=== PATIENT | male | born 1970 | race Caucasian/White ===

== ENCOUNTER 2018-04-15 06:30 | Emergency (ER) | payer SELFPAY ==
[2018-04-15] MEDS ORDERED: ALUM-MAG HYDROX-SIMETH 200-200-20MG/5ML PO ONE (06:58)
[2018-04-15] MEDS ORDERED: PROTONIX PO ONE (06:58)
[2018-04-15] MEDS ORDERED: LIDOCAINE VISCOUS 2% PO ONE (06:58)
--- NOTE | 2018-04-15 07:03 | Emergency Department Report ---
ED General Adult HPI - General Chief complaint: Nausea/Vomiting/Diarrhea Stated complaint: THROAT PAIN/LOW BP Time Seen by Provider: 04/15/18 06:50 Source: EMS Mode of arrival: Stretcher Limitations: Language Barrier - History of Present Illness Initial comments: 47 year old man [place]-speaking who called the ambulance secondary to an apparent episode of acid reflux. I will obtain this history in [place]. Patient states that he clearly felt like acid was coming up in the back of his mouth. He had a coughing episode. He apparently was anxious but did not experience chest pain. He states that he was drinking [employer] all day yesterday and night. He stated the reason why he called an ambulance is because this is the first episode he has had like this in his life. He states that he ordinarily can drink beer without any reflux symptoms. -: Gradual Location: mouth (throat discomfort associated with acid reflux) Radiation: non-radiation Quality: burning Consistency: intermittent Improves with: none Worsens with: none Associated Symptoms: denies other symptoms, cough Treatments Prior to Arrival: none - Related Data Previous Rx's Medication Instructions Recorded Last Taken Type Lansoprazole [Prevacid] 15 mg PO BID #30 cap 04/15/18 Unknown Rx ED Review of Systems ROS: Stated complaint: THROAT PAIN/LOW BP Other details as noted in HPI Constitutional: denies: chills, fever Eyes: denies: eye pain, eye discharge, vision change ENT: throat pain. denies: ear pain Respiratory: cough. denies: shortness of breath, wheezing Cardiovascular: denies: chest pain, palpitations Endocrine: no symptoms reported Gastrointestinal: other (reflux). denies: abdominal pain, nausea, diarrhea Genitourinary: denies: urgency, dysuria Musculoskeletal: denies: back pain, joint swelling, arthralgia Skin: denies: rash, lesions Neurological: denies: headache, weakness, paresthesias Psychiatric: denies: anxiety, depression Hematological/Lymphatic: denies: easy bleeding, easy bruising ED Past Medical Hx - Past Medical History Previous Medical History?: No - Surgical History Past Surgical History?: No - Social History Smoking Status: Unknown if ever smoked Substance Use Type: Alcohol - Medications Home Medications: Home Medications Medication Instructions Recorded Confirmed Last Taken Type Lansoprazole [Prevacid] 15 mg PO BID #30 cap 04/15/18 Unknown Rx ED Physical Exam - General Limitations: No Limitations General appearance: alert, in no apparent distress - Head Head exam: Present: atraumatic, normocephalic - Eye Eye exam: Present: normal appearance - ENT ENT exam: Present: mucous membranes moist - Neck Neck exam: Present: normal inspection - Respiratory Respiratory exam: Present: normal lung sounds bilaterally. Absent: respiratory distress - Cardiovascular Cardiovascular Exam: Present: regular rate, normal rhythm. Absent: systolic mur mur, diastolic murmur, rubs, gallop - GI/Abdominal GI/Abdominal exam: Present: soft, normal bowel sounds. Absent: distended, tenderness, guarding, rebound, rigid - Rectal Rectal exam: Present: deferred - Extremities Exam Extremities exam: Present: normal inspection - Back Exam Back exam: Present: normal inspection - Neurological Exam Neurological exam: Present: alert, oriented X3, CN II-XII intact. Absent: motor sensory deficit - Psychiatric Psychiatric exam: Present: normal affect, normal mood - Skin Skin exam: Present: warm, dry, intact, normal color. Absent: rash ED Course Vital Signs 04/15/18 04/15/18 04/15/18 06:37 09:31 09:32 Temperature 98.0 F Pulse Rate 74 82 Respiratory 14 18 22 Rate Blood Pressure 102/66 O2 Sat by Pulse 98 91 92 Oximetry 04/15/18 04/15/18 04/15/18 09:34 09:36 09:38 Temperature Pulse Rate 82 81 81 Respiratory 21 13 21 Rate Blood Pressure 88/38 88/38 88/38 O2 Sat by Pulse 92 92 91 Oximetry 04/15/18 04/15/18 04/15/18 09:40 09:42 09:44 Temperature Pulse Rate 79 83 84 Respiratory 20 15 16 Rate Blood Pressure 88/38 88/38 88/38 O2 Sat by Pulse 89 87 85 Oximetry 04/15/18 04/15/18 04/15/18 09:45 09:46 09:48 Temperature Pulse Rate 83 81 85 Respiratory 18 20 19 Rate Blood Pressure 88/45 88/45 88/45 O2 Sat by Pulse 84 90 88 Oximetry 04/15/18 04/15/18 04/15/18 09:50 10:00 10:02 Temperature Pulse Rate 79 74 77 Respiratory 19 18 18 Rate Blood Pressure 88/45 103/58 103/58 O2 Sat by Pulse 92 97 96 Oximetry 01/04/15/18 04/15/18 10:04 10:06 10:08 Temperature Pulse Rate 71 81 97 H Respiratory 22 11 L 17 Rate Blood Pressure 103/58 103/58 103/58 O2 Sat by Pulse 97 97 99 Oximetry 04/15/18 04/15/18 04/15/18 10:10 10:12 10:14 Temperature Pulse Rate 81 75 80 Respiratory 20 16 16 Rate Blood Pressure 103/58 103/58 103/58 O2 Sat by Pulse 97 98 97 Oximetry 04/15/18 04/15/18 04/15/18 10:16 10:18 10:20 Temperature Pulse Rate 84 81 82 Respiratory 13 17 14 Rate Blood Pressure 112/65 112/65 112/65 O2 Sat by Pulse 97 96 96 Oximetry 04/15/18 04/15/18 04/15/18 10:22 10:24 10:26 Temperature Pulse Rate 79 79 83 Respiratory 17 15 19 Rate Blood Pressure 112/65 112/65 112/65 O2 Sat by Pulse 96 97 96 Oximetry 04/15/18 04/15/18 04/15/18 10:28 10:30 10:32 Temperature Pulse Rate 82 81 81 Respiratory 13 14 16 Rate Blood Pressure 112/65 95/62 95/62 O2 Sat by Pulse 97 96 97 Oximetry 04/15/18 04/15/18 04/15/18 10:34 10:36 10:38 Temperature Pulse Rate 80 78 79 Respiratory 15 12 18 Rate Blood Pressure 95/62 95/62 99/60 O2 Sat by Pulse 96 97 97 Oximetry 04/15/18 04/15/18 04/15/18 10:40 10:42 10:44 Temperature Pulse Rate 75 79 75 Respiratory 16 12 15 Rate Blood Pressure 99/60 99/60 99/60 O2 Sat by Pulse 98 98 96 Oximetry 04/15/18 04/15/18 04/15/18 10:45 10:46 10:48 Temperature Pulse Rate 74 75 75 Respiratory 13 14 13 Rate Blood Pressure 109/62 109/62 109/62 O2 Sat by Pulse 98 97 98 Oximetry 04/15/18 04/15/18 04/15/18 10:50 10:52 10:54 Temperature Pulse Rate 76 70 75 Respiratory 13 16 15 Rate Blood Pressure 109/62 109/62 109/62 O2 Sat by Pulse 97 98 98 Oximetry 04/15/18 04/15/18 04/15/18 10:56 10:58 11:00 Temperature Pulse Rate 78 77 71 Respiratory 11 L 16 15 Rate Blood Pressure 109/62 109/62 102/63 O2 Sat by Pulse 96 97 97 Oximetry 04/15/18 04/15/18 04/15/18 11:02 11:04 11:06 Temperature Pulse Rate 78 77 79 Respiratory 11 L 17 14 Rate Blood Pressure 102/63 102/63 102/63 O2 Sat by Pulse 98 97 97 Oximetry 04/15/18 04/15/18 04/15/18 11:08 11:10 11:12 Temperature Pulse Rate 80 74 74 Respiratory 14 14 13 Rate Blood Pressure 102/63 102/63 102/63 O2 Sat by Pulse 98 98 98 Oximetry 04/15/18 04/15/18 04/15/18 11:14 11:16 11:18 Temperature Pulse Rate 74 75 76 Respiratory 12 20 19 Rate Blood Pressure 102/63 106/63 106/63 O2 Sat by Pulse 98 98 97 Oximetry 04/15/18 04/15/18 04/15/18 11:20 11:22 11:24 Temperature Pulse Rate 76 77 74 Respiratory 10 L 15 16 Rate Blood Pressure 106/63 106/63 106/63 O2 Sat by Pulse 97 97 96 Oximetry 04/15/18 04/15/18 04/15/18 11:26 11:28 11:30 Temperature Pulse Rate 74 75 72 Respiratory 18 16 19 Rate Blood Pressure 106/63 106/63 99/60 O2 Sat by Pulse 95 96 96 Oximetry 04/15/18 04/15/18 04/15/18 11:32 11:34 11:36 Temperature Pulse Rate 73 74 74 Respiratory 20 15 12 Rate Blood Pressure 99/60 99/60 99/60 O2 Sat by Pulse 97 97 98 Oximetry - Reevaluation(s) Reevaluation #1: Patient had a similar episode while is at the bed side. He appeared to experience acid reflux and some cough. It did not last long. He was in no distress. He stated this was basically what happened prior to him calling the ambulance. 04/15/18 07:02 Reevaluation #2: Patient now asymptomatic. 04/15/18 13:27 ED Medical Decision Making - Lab Data Result diagrams: 04/15/18 07:09 04/15/18 07:09 Laboratory Results - last 24 hr 04/15/18 04/15/18 04/15/18 07:09 07:09 10:26 WBC 5.5 RBC 4.89 Hgb 14.0 Hct 42.4 MCV 87 MCH 29 MCHC 33 RDW 14.1 Plt Count 232 Lymph % (Auto) 38.1 H Hubbard % (Auto) 6.0 Eos % (Auto) 4.7 H Baso % (Auto) 1.1 Lymph # 2.1 Hubbard # 0.3 Eos # 0.3 Baso # 0.1 Seg Neutrophils % 50.1 Seg Neutrophils # 2.8 PT 13.6 INR 1.00 APTT 31.1 D-Dimer Sodium 143 Potassium 3.9 Chloride 107.3 H Carbon Dioxide 19 L Anion Gap 21 BUN 11 Creatinine 0.7 L Estimated GFR > 60 BUN/Creatinine Ratio 16 Glucose 115 H Calcium 8.0 L Total Creatine Kinase CK-MB (CK-2) CK-MB (CK-2) Rel Index Troponin T < 0.010 NT-Pro-B Natriuret Pep 04/15/18 04/15/18 10:26 10:26 WBC RBC Hgb Hct MCV MCH MCHC RDW Plt Count Lymph % (Auto) Hubbard % (Auto) Eos % (Auto) Baso % (Auto) Lymph # Hubbard # Eos # Baso # Seg Neutrophils % Seg Neutrophils # PT INR APTT D-Dimer 180.53 Sodium Potassium Chloride Carbon Dioxide Anion Gap BUN Creatinine Estimated GFR BUN/Creatinine Ratio Glucose Calcium Total Creatine Kinase 86 CK-MB (CK-2) 1.2 CK-MB (CK-2) Rel Index 1.3 Troponin T < 0.010 NT-Pro-B Natriuret Pep 15.18 - EKG Data -: EKG Interpreted by [place] EKG shows normal: sinus rhythm, intervals, QRS complexes, ST-T waves - EKG Data Interpretation: other (left axis deviation/left anterior fascicular block. Otherwise normal EKG) - Radiology Data Radiology results: report reviewed Normal chest x-ray Critical care attestation.: If time is entered above; I have spent that time in minutes in the direct care of this critically ill patient, excluding procedure time. ED Disposition Clinical Impression: GERD (gastroesophageal reflux disease) Qualifiers: Esophagitis presence: esophagitis presence not specified Qualified Code(s): K21.9 - Gastro-esophageal reflux disease without esophagitis Disposition: DC-01 TO HOME OR SELFCARE Is pt being admited?: No Does the pt Need Aspirin: No Condition: Stable Instructions: Esophageal Spasm (ED), Gastroesophageal Reflux Disease (ED) Additional Instructions: Rx as directed. Avoid excessive beer. Follow-up with primary care physician. Return any acute change or problems. Prescriptions: Lansoprazole [Prevacid] 15 mg PO BID #30 cap Referrals: [facility] [Provider Group] - 2-3 Days Time of Disposition: 13:28 Print Language: MICRONESIAN
[2018-04-15] MEDS ORDERED: NACL 0.9% 1000 ML 1,000 ML IV ONE (07:10)
[2018-04-15 07:34] LABS: Basophils # (Auto) 0.1 K/mm3 (0.0-0.1); Basophils % (Auto) 1.1 % (0.0-1.8); Eosinophils # (Auto) 0.3 K/mm3 (0.0-0.4); Eosinophils % (Auto) 4.7 % (0.0-4.3); Hematocrit 42.4 % (35.5-45.6); Lymphocytes # (Auto) 2.1 K/mm3 (1.2-5.4); Lymphocytes % (Auto) 38.1 % (13.4-35.0); Mean Corpuscular HGB Conc 33 % (32-34); Mean Corpuscular Volume 87 fl (84-94); Monocytes # (Auto) 0.3 K/mm3 (0.0-0.8); Platelet Count 232 K/mm3 (140-440); Red Blood Count 4.89 M/mm3 (3.65-5.03); Red Cell Distribution Width 14.1 % (13.2-15.2)
[2018-04-15 07:44] LABS: BUN/Creatinine Ratio 16; Blood Urea Nitrogen 11 mg/dL (9-20); Hemolysis Index 24
--- NOTE | 2018-04-15 08:35 | XRay Report ---
FINAL REPORT EXAM: XR CHEST 1V AP HISTORY: cough TECHNIQUE: AP portable view(s) of the chest obtained. PRIORS: None. FINDINGS: No mediastinal shift. Cardiac silhouette is not enlarged. No pneumothorax, effusion, or focal pulmona ry opacity identified. No acute skeletal findings. IMPRESSION: No acute pulmonary finding identified.
[2018-04-15 11:04] LABS: Partial Thromboplastin Time 31.1 Sec. (24.2-36.6)
[2018-04-15 11:10] LABS: Creatine Kinase MB 1.2 ng/mL (0.0-4.0)
[2018-04-15 11:38] VITALS: BP 99/60
== END 2018-04-15 13:42 | disposition home or self-care (01) ==
LOC: ED 06:30
DX: K21.9 Gastro-esophageal reflux disease without esophagitis (principal)
CPT/HCPCS: 36415; 71045; 80048; 82550; 82553; 83880; 84484; 85025; 85379; 85610; 85730; 93005; 93010; 99284; J7030